=== PATIENT | female | born 1970 | race Caucasian/White ===

== ENCOUNTER → 2020-08-13 | Outpatient (CLI) | payer OTHER ==
[~2020-08-13] MED LIST: AMOXICILLIN875 MG PO; MEDROLDOSEPACK PO; UNKNOWN B/P MED
== END ==
LOC: M.LAB 16:17
PROVIDERS: ATTEND Orthopaedic Surgery
DX: Z01.812 Encounter for preprocedural laboratory examination (principal); Z20.822 Contact with and (suspected) exposure to COVID-19

== ENCOUNTER → 2020-08-18 | Day surgery (SDC) | payer OTHER ==
[~2020-08-18] MED LIST changes: +FLEXERIL PO; +IBUPROFEN 800800 M1 PO; +LISINOPRIL10 MG PO; +MEDICAL MARIJUANA; +NORCO5 PO; +TOPROL XL25 MG PO
--- NOTE | ~2020-08-18 | OP ---
[address] [address] OPERATIVE REPORT Name: CONRADO ZIMMERMAN Room: [facility]#: [id number] Admission: 08/18/20 Attend Phys: Pratik Ernst II Discharge: Date of : 68 Report #: [id number] THIS REPORT FOR: cc: Ceferino Aguilar Herbert E. DO ~ Pratik Ernst II, DO DATE OF SERVICE: 08/18/2020 PREOPERATIVE DIAGNOSIS: Left knee medial meniscus tear. POSTOPERATIVE DIAGNOSES: 1. Left knee medial meniscus tear. 2. Grade 3 chondromalacia, patellofemoral groove. 3. Loose bodies x 2 measuring 1 cm. PROCEDURE PERFORMED: 1. Left knee arthroscopic surgery with partial medial meniscectomy. 2. Abrasion chondroplasty of the patellofemoral groove down to bleeding bone. 3. Excision of loose bodies x 2 measuring approximately 1 cm. SURGEON: Pratik Ernst II, DO. ANGLE DOZER OPERATOR: RAJAN Knutson. ANESTHESIA: Per operative record. ESTIMATED BLOOD LOSS: Minimal. ANTIBIOTICS: Per operative record. DRAINS: None. COMPLICATIONS: None. CONDITION: The patient stable to recovery room. DESCRIPTION OF PROCEDURE: The patient was taken to the operative suite and placed supine on the operative table, given appropriate anesthesia. The patient's left knee was sterilely prepped and draped in a well-padded knee arthroscopic [place]. Surgery began by medial and lateral portal incisions. The arthroscope was advanced in the joint. There was ____ posterior medial meniscus tear, it was extending around towards the root. This was debrided utilizing baskets and shaver back to good stable margins and then smoothed with Coblation wand in appropriate fashion. There was shown to be grade 3 chondromalacia to patellofemoral groove with loose fibrillated cartilage, [place] [address] OPERATIVE REPORT Name: CONRADO ZIMMERMAN Room: [facility]#: [id number] Admission: 08/18/20 Attend Phys: Pratik Ernst II Discharge: Date of : 68 Report #: [id number] utilizing shaver down to bleeding bone and then smoothed utilizing Coblation wand. There was shown to be 2 loose bodies measuring approximately 1 cm in aggregate, which were debrided utilizing shaver and removed in morselized pieces through the medial incision. Final irrigation was performed of the knee, it was drained of arthroscopic fluid, closed with 4-0 nylon in simple fashion. Dermabond and sterile dressing applied. The patient transported to recovery room in stable condition. Counts were correct throughout the procedure. By: [id number] Ernst II, DO /nt
--- NOTE | 2020-08-18 10:14 | EKG ---
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
== END | disposition home or self-care (01) ==
LOC: M.SUR 05:25
PROVIDERS: ATTEND Orthopaedic Surgery
DX: M25.562 Pain in left knee (principal); S83.242A Other tear of medial meniscus, current injury, left knee, initial encounter; M22.42 Chondromalacia patellae, left knee; M23.42 Loose body in knee, left knee; J45.909 Unspecified asthma, uncomplicated; M19.90 Unspecified osteoarthritis, unspecified site; Z79.899 Other long term (current) drug therapy

== ENCOUNTER 2020-08-30 17:01 | Emergency (ER) | payer OTHER ==
[~2020-08-30] VITALS: Ht 177.8 cm; Wt 95.3 kg
[2020-08-30 18:30] LABS: ABSOLUTE EOSINOPHILS 0.2 thou/uL (0.0-0.7); ABSOLUTE LYMPHOCYTES 2.8 thou/uL (0.8-5.3); ABSOLUTE MONOCYTES 0.6 thou/uL (0.0-1.2); ABSOLUTE NEUTROPHILS 3.6 thou/uL (1.6-8.1); BASOPHILS 0.5 %; EOSINOPHILS 2.7 %; HEMATOCRIT 38.6 % (37.0-47.0); HEMOGLOBIN 12.9 gm/dL (12.0-15.0); LYMPHOCYTES 38.8 %; MCH 29.1 pg (26.0-34.0); MCHC 33.5 g/dL (28.0-37.0); MCV 86.9 fL (80.0-100.0); MPV 7.9 fl. (7.2-11.1); NUCLEATED RBCS 0 /100WBC; PLATELET COUNT* 316 thou/uL (150-400); RBC 4.44 mil/uL (4.20-5.00); RDW-CV 12.4 % (10.5-14.5); WBC 7.3 thou/uL (4.0-11.0)
[2020-08-30 18:35] LABS: CALCIUM 9.1 mg/dL (8.5-10.1); CREATININE 0.8 mg/dL (0.6-1.3); POTASSIUM 4.1 mmol/L (3.5-5.1)
[2020-08-30 18:39] LABS: ALBUMIN 3.8 g/dL (3.4-5.0); MAGNESIUM 2.2 mg/dL (1.8-2.4); TOTAL BILIRUBIN 0.2 mg/dL (<0.1-1.0); TOTAL PROTEIN 7.6 g/dL (6.4-8.2)
[2020-08-30] MEDS ORDERED: FLEXERIL PO ×2 (18:54→18:56)
[2020-08-30] MEDS ORDERED: IBUPROFEN 800800 MG PO (19:01)
[2020-08-30 19:15] VITALS: BP 148/87
== END 2020-08-30 19:15 | disposition home or self-care (01) ==
LOC: M.ERS 17:01
PROVIDERS: Nurse Practitioner Family
DX: M71.22 Synovial cyst of popliteal space [Baker], left knee (principal); G89.18 Other acute postprocedural pain; Z90.711 Acquired absence of uterus with remaining cervical stump; Z90.49 Acquired absence of other specified parts of digestive tract